=== PATIENT | female | born 1955 | race Caucasian/White ===

== ENCOUNTER 2022-08-08 17:05 | Emergency (ER) | payer MEDICARE, OTHER ==
[~2022-08-08] VITALS: Ht 165.1 cm; Wt 62.1 kg
[2022-08-08] MEDS ORDERED: IV NS 0.9% 1,000 ML BAG IV ONE (18:00)
[2022-08-08] MEDS ORDERED: ONDANSETRON HCL/PF 4 MG/2 ML VIAL IVP ONE (18:00)
[2022-08-08] MEDS ORDERED: MORPHINE SULFATE INJ 2 MG/ML DISP.SYRIN IV ONE (18:00)
[2022-08-08 18:20] LABS: BASOPHILS # (AUTO) 0.1 K/uL (0.0-0.2); BASOPHILS % (AUTO) 0.7 % (0.0-2.0); EOSINOPHILS % (AUTO) 1.6 % (0.0-6.0); HEMATOCRIT 36 % (33-45); HEMOGLOBIN 11.3 g/dL (11.5-14.8); LYMPHOCYTES # (AUTO) 1.3 K/uL (0.8-4.8); LYMPHOCYTES % (AUTO) 15.7 % (20.0-44.0); MEAN CORPUSCULAR HGB CONC 32 g/dl (31.0-36.0); MEAN CORPUSCULAR VOLUME 87 fL (82-100); MONOCYTES # (AUTO) 0.6 K/uL (0.1-1.30); MONOCYTES % (AUTO) 6.5 % (2.0-12.0); NEUTROPHILS # (AUTO) 6.4 K/uL (1.8-8.9); NEUTROPHILS % (AUTO) 75.5 % (43.0-81.0); PLATELET COUNT (AUTO) 391 K/uL (150-450); WHITE BLOOD COUNT (AUTO) 8.5 K/uL (4.3-11.0)
[2022-08-08 18:24] LABS: CALCIUM, SERUM 9.8 mg/dL (8.5-10.1); CREATININE 0.9 mg/dL (0.6-1.3)
[2022-08-08] MEDS ORDERED: ONDANSETRON HCL/PF 4 MG/2 ML VIAL ONE (18:30)
[2022-08-08] MEDS ORDERED: MORPHINE SULFATE INJ 4 MG/ML DISP.SYRIN ONE (18:30)
[2022-08-08] MEDS ORDERED: IV NS 0.9% 250 ML IV ONE (18:40)
[2022-08-08] MEDS ORDERED: CT SWABBABLE VALVE TRANS SET 1 EA INFUS.SET MC ONE (18:40)
[2022-08-08] MEDS ORDERED: IOHEXOL-300 100 ML VIAL IV ONE (18:40)
[2022-08-08 18:41] LABS: BILIRUBIN,DIRECT 0.1 mg/dL (0.0-0.2); BILIRUBIN,TOTAL 0.3 mg/dL (0.2-1.0)
[2022-08-08] MEDS ORDERED: ONDA4TAB11 PO (19:40)
[2022-08-08] MEDS ORDERED: OXYC-128 PO (19:40)
[2022-08-08 20:00] VITALS: BP 152/76
== END 2022-08-08 20:00 | disposition home or self-care (01) ==
LOC: ER 17:07
DX: R10.13 Epigastric pain (principal); G89.29 Other chronic pain; Z79.899 Other long term (current) drug therapy; Z59.00 Homelessness unspecified
CPT/HCPCS: 99285; 74177; 96374; 96361; 96375; 85025; 80048; 83690; 80076; 36415; J2270; J2405; J7030; J7050; Q9967